=== PATIENT | male | born 1970 | race American Indian/Alaskan Native ===

== ENCOUNTER 2018-06-29 15:48 | Emergency (ER) | payer MEDICARE ==
--- NOTE | 2018-06-29 16:07 | Emergency Department Report ---
[facility] Chief Complaint: Eye Problems Stated Complaint: BUMP ON EYE LID Time Seen by Provider: 06/29/18 16:05 Duration: 3 Days Side: Left Severity: mild Symptoms: No Eye Itching, No Eye Redness, No Eye Pain, No Mucous Drainage, No Purulent Drainage, No Blurred Vision, No Preceding URI, No H/O Allergic Rhinitis, No Contact Lens Use, No Trauma, No Fever, No Headache Other History: Patient is a pleasant 48-year-old male who presents to the ER complaining of left eye pain. Patient is deaf. Patient has a stye on the lower eyelid which she states is painful. No other symptoms. No eye pain. Vision is unchanged. Afebrile. Patient is nontoxic and ambulatory ED Review of Systems ROS: Stated complaint: BUMP ON EYE LID Other details as noted in HPI Comment: All other systems reviewed and negative Constitutional: denies: chills Eyes: as per HPI, other ENT: denies: ear pain Respiratory: denies: cough Cardiovascular: denies: palpitations Endocrine: denies: see HPI Gastrointestinal: denies: abdominal pain Genitourinary: denies: urgency Musculoskeletal: denies: as per HPI Skin: denies: rash Neurological: denies: headache Psychiatric: denies: depression Hematological/Lymphatic: denies: easy bleeding ED Past Medical Hx - Past Medical History Additional medical history: deaf - Surgical History Past Surgical History?: No - Family History Family history: no significant - Social History Smoking Status: Never Smoker Substance Use Type: None - Medications Home Medications: Home Medications Medication Instructions Recorded Confirmed Last Taken Type Tobramycin/Dexameth 0.1-0.3% 1 applicatio OS TID #1 tube 06/29/18 Unknown Rx [Tobradex] [facility] Exam - Exam General: Vital signs noted. No distress. Alert and acting appropriately. Eye Exam: Neither Injection, Neither Chemosis, Neither Abnormal Pupil, Neither E KAVITA, Neither Eye Foreign Body, Neither Lid Foreign Body, Neither Mucous Discharge, Neither Purulent Discharge, Neither Fluorescein Uptake, Neither Fluorescein Uptake (slit lamp), Neither Cell/Flare (slit lamp), Neither Corneal Edema, Neither Photophobia HEENT: Yes Pharyngeal Erythema, No Nasal Congestion Remainder of HEENT: Normal Lungs: Yes Clear Lung Sounds, Yes Good Air Exchange, No Wheezes, No Stridor, No Cough, No Nasal Flaring, No Retractions, No Use of Accessory Muscles Exam: style left eye lower lid ED Medical Decision Making - Medical Decision Making simple style no eye pain no vision change medicated in ER dc home w dc poc and optha follow up Critical care attestation.: If time is entered above; I have spent that time in minutes in the direct care of this critically ill patient, excluding procedure time. ED Disposition Clinical Impression: Stye Disposition: DC-01 TO HOME OR SELFCARE Is pt being admited?: No Does the pt Need Aspirin: No Condition: Stable Instructions: Stbrianna (ED) Additional Instructions: warm compresses to eye medication as ordered today motrin or tylenol over the counter for pain may take a couple weeks to go away if persists see eye doctor referral below Prescriptions: Tobramycin/Dexameth 0.1-0.3% [Tobradex] 1 applicatio OS TID #1 tube Referrals: MIKE TROTTER MD [Staff Physician] - 3-5 Days Time of Disposition: 16:18
[2018-06-29] MEDS ORDERED: IBUPROFEN PO ONE (16:18)
[2018-06-29] MEDS ORDERED: TOBRADEX OS ONE (16:30)
[2018-06-29 16:59] VITALS: BP 138/76
== END 2018-06-29 16:52 | disposition home or self-care (01) ==
LOC: ED 15:48
DX: H00.016 Hordeolum externum left eye, unspecified eyelid (principal)
CPT/HCPCS: 99282